=== PATIENT | male | born 1975 | race American Indian/Alaskan Native ===

== ENCOUNTER 2017-07-22 19:00 | Emergency (ER) | payer MEDICAID ==
[2017-07-22 19:08] VITALS: PULSE 76; RESP 18; TEMP 97.9; O2SAT 98
[2017-07-22 19:10] VITALS: BP 124/87
[2017-07-22] MEDS ORDERED: Sodium Chloride 0.9% 1,000 ML IV STA (19:26)
[2017-07-22 19:44] LABS: BASO % 0.3 % (0.0-2.0); EOS % 0.6 % (0.0-4.0); LYMPH # 1.2 K/uL (1.0-4.3); LYMPH % 18.7 % (20.0-40.0); MEAN CELL VOLUME 95.9 fl (80.0-94.0); MEAN CORPUSCULAR HEMOGLOBIN 32.6 pg (27.0-31.0); MEAN PLATELET VOLUME 9.9 fl (7.2-11.7); MONO # 0.7 K/uL (0.0-0.8); MONO % 11.1 % (0.0-10.0); NEUT # 4.3 K/uL (1.8-7.0); NEUT % 69.3 % (50.0-75.0); NRBC % 0.1 % (0.0-0.0); RBC 4.9 Mil/uL (4.40-5.90); RED CELL DISTRIBUTION WIDTH 13.9 % (11.5-14.5); WHITE BLOOD COUNT 6.2 K/uL (4.8-10.8)
[2017-07-22 19:52] LABS: CALCIUM 9.2 mg/dL (8.4-10.2); GFR AFRICAN-AMERICAN > 60; GFR NON-AFRICAN AMERICAN 56
--- NOTE | 2017-07-22 19:54 | ED PDOC ---
HPI: Abdomen Time Seen by Provider: 07/22/17 19:00 Chief Complaint (Nursing): GI Problem Chief Complaint (Provider): Abdominal discomfort History Per: Patient History/Exam Limitations: no limitations Onset/Duration Of Symptoms: Days Outside of [place] travel?: No Current Symptoms Are (Timing): Still Present Location Of Pain/Discomfort: Diffuse Quality Of Discomfort: Cramping, Gas Associated Symptoms: Nausea, Diarrhea. denies: Vomiting Additional Complaint(s): 41yo male with HIV (good follow up, undetectable viral load), hypertension ( compliant with Amplodipine), presents to ER with complaints of abdominal discomfort with associated nausea and diarrhea since this morning. Patient also reports a tactile fever and night sweats. He states his roommate has similar symptoms as well which started after they ate the same food yesterday. The patient has been unable to tolerate PO intake today. He offers no other medical complaints. PMD: Dr. Yanez in [place] Past Medical History Reviewed: Historical Data, Nursing Documentation, Vital Signs Vital Signs: Last Vital Signs Temp 97.9 F 07/22/17 19:04 Pulse 76 07/22/17 19:04 Resp 18 07/22/17 19:04 BP 124/87 07/22/17 19:04 Pulse Ox 98 07/22/17 22:00 - Medical History PMH: HIV, HTN - Surgical History Surgical History: No Surg Hx - Family History Family History: States: No Known Family Hx - Home Medications Home Medications: Ambulatory Orders Medication Instructions Recorded Ondansetron [Zofran] 4 mg PO Q6H PRN #5 tab 07/22/17 - Allergies Allergies/Adverse Reactions: Allergies Allergy/AdvReac Type Severity Reaction Status Date / Time No Known Allergies Allergy Verified 07/22/17 19:04 Review of Systems ROS Statement: Except As Marked, All Systems Reviewed And Found Negative Constitutional: Positive for: Fever, Sweats. Negative for: Weakness Gastrointestinal: Positive for: Vomiting, Abdominal Pain, Diarrhea Physical Exam - Reviewed Nursing Documentation Reviewed: Yes Vital Signs Reviewed: Yes - Physical Exam Appears: Positive for: Non-toxic, No Acute Distress Head Exam: Positive for: ATRAUMATIC, NORMAL INSPECTION, NORMOCEPHALIC Skin: Positive for: Normal Color, Warm Eye Exam: Positive for: Normal appearance, PERRL ENT: Positive for: Normal ENT Inspection. Negative for: Pharyngeal Erythema Neck: Positive for: Supple Cardiovascular/Chest: Positive for: Regular Rate, Rhythm Respiratory: Positive for: Normal Breath Sounds. Negative for: Respiratory Distress Gastrointestinal/Abdominal: Positive for: Normal Exam, Soft. Negative for: Tenderness Neurologic/Psych: Positive for: Alert, Oriented. Negative for: Motor/Sensory Deficits - Laboratory Results Result Diagrams: 07/22/17 19:40 07/22/17 19:40 - ECG O2 Sat by Pulse Oximetry: 98 (RA) Pulse Ox Interpretation: Normal Medical Decision Making Medical Decision Making: Impression: Viral illness Plan: -- IV Fluids -- Pepcid 20mg IV -- Zofran 4mg ODT -- CMP Time: 2100 Patient reports feeling much better but states his diarrhea still persists. Imodium 4mg PO given. Time: 21:55 --Patient feels better and is tolerating PO. He will be discharged with Zofran. Follow up with PMD in 1-2 days. Return to the ED if symptoms persist or worsen. Scribe Attestation: Documented by Kandice Tsang acting as a scribe for Alta Puente MD Provider Attestation: All medical record entries made by the Scribe were at my direction and personally dictated by me. I have reviewed the chart and agree that the record accurately reflects my personal performance of the history, physical exam, medical decision making, and the department course for this patient. I have also personally directed, reviewed, and agree with the discharge instructions and disposition. Disposition - Clinical Impression Clinical Impression: Gastroenteritis - Patient ED Disposition Is Patient to be Admitted: No Counseled Patient/Family Regarding: Studies Performed, Diagnosis, Need For Followup - Disposition Referrals: [facility] [Outside] [facility] [Outside] Disposition: Routine/Home Disposition Time: 21:57 Condition: IMPROVED Additional Instructions: follow up with your primary doctor in 1-2 days return to the ED with any worsening or concerning symptoms Prescriptions: Ondansetron [Zofran] 4 mg PO Q6H PRN #5 tab PRN Reason: Nausea/Vomiting Instructions: Viral Gastroenteritis Forms: [employer] (Burundian)
[2017-07-22 20:02] LABS: ALB/GLOB RATIO 1.1 (1.0-2.1); ALBUMIN 4.9 g/dL (3.5-5.0); ALT/SGPT 31 U/L (21-72); AST/SGOT 46 U/L (17-59); BLOOD UREA NITROGEN 24 mg/dl (9-20)
== END 2017-07-22 22:04 | disposition home or self-care (01) ==
LOC: H.ER 19:00
DX: K52.9 Noninfective gastroenteritis and colitis, unspecified (principal); I10 Essential (primary) hypertension; B20 Human immunodeficiency virus [HIV] disease
CPT/HCPCS: 80053; 85025; 96374; 99283; J7040

== ENCOUNTER 2017-10-09 12:23 | Emergency (ER) | payer MEDICAID, OTHER ==
[2017-10-09 12:29] VITALS: BMI 27.5
[2017-10-09 12:31] VITALS: BP 145/91; PULSE 72; RESP 20; TEMP 98.3; O2SAT 99
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
--- NOTE | 2017-10-09 14:42 | RAD ---
Date of service: 10/09/2017 PROCEDURE: Cervical Spine Radiographs. HISTORY: Pain. COMPARISON: None. FINDINGS: BONES: Straightened curvature. No fracture or spondylolisthesis. No destructive bony lesion identified. Vertebral body heights are normal. Mild facet degenerative arthropathy is appreciate the mid to inferior cervical levels. DISC SPACES: Variable multilevel cervical spondylosis appreciated concentrated at C4-5 and C5-6 anteriorly greater than posteriorly. Limited disc height loss seen at C5-6. SOFT TISSUES: Normal. No prevertebral soft tissue swelling. OTHER FINDINGS: None. IMPRESSION: Multilevel degenerative disc disease concentrated the mid to inferior cervical spine as discussed above. No fracture or spondylolisthesis identified. Straightening of the cervical curvature is apparent.
== END 2017-10-09 13:55 | disposition home or self-care (01) ==
LOC: H.ER 12:23
DX: S16.1XXA Strain of muscle, fascia and tendon at neck level, initial encounter (principal); V43.52XA Car driver injured in collision with other type car in traffic accident, initial encounter; Y92.410 Unspecified street and highway as the place of occurrence of the external cause; I10 Essential (primary) hypertension

== ENCOUNTER 2018-02-01 14:37 | Emergency (ER) | payer MEDICAID, OTHER ==
[2018-02-01 14:37] VITALS: BMI 27.5
[2018-02-01 15:07] VITALS: RESP 18; TEMP 98.3; O2SAT 97
--- NOTE | 2018-02-01 16:20 | ED PDOC ---
HPI: General Adult Time Seen by Provider: 02/01/18 15:29 Chief Complaint (Nursing): Flu-like Symptoms Chief Complaint (Provider): Flu-like Symptoms History Per: Patient History/Exam Limitations: no limitations Onset/Duration Of Symptoms: Days Current Symptoms Are (Timing): Still Present Additional Complaint(s): 42 year old male, PMH of HIV, presents to the ER for an evaluation of flu-like symptoms onset for 2 days complaining of runny nose, sinus pain and sore throat. . He took medication for throat pain without any relief. Denies any fever, vomiting, nausea or diarrhea. PMD: Renata Ramirez Past Medical History Reviewed: Historical Data, Nursing Documentation, Vital Signs Vital Signs: Last Vital Signs Temp 98.3 F 02/01/18 15:05 Pulse 76 02/01/18 15:05 Resp 18 02/01/18 15:05 BP 152/93 H 02/01/18 15:05 Pulse Ox 97 02/01/18 15:05 - Medical History PMH: HIV, HTN - Family History Family History: States: Unknown Family Hx - Social History Current smoker - smoking cessation education provided: No Drugs: Cannabis - Home Medications Home Medications: Ambulatory Orders Medication Instructions Recorded Ondansetron [Zofran] 4 mg PO Q6H PRN #5 tab 07/22/17 Cyclobenzaprine [Cyclobenzaprine 10 mg PO TID #20 tab 10/09/17 HCl] Ibuprofen [Motrin] 600 mg PO Q6 #20 tab 10/09/17 Azithromycin [Zithromax] 500 mg PO DAILY #6 tab 02/01/18 Methylprednisolone [Medrol Dose 4 mg PO DAILY #21 mg 02/01/18 Pack (21 tabs)] Promethazine HCl/Codeine 5 ml PO HS #80 ml 02/01/18 [Prometh-Codein 6.25-10 mg/5 ml] - Allergies Allergies/Adverse Reactions: Allergies Allergy/AdvReac Type Severity Reaction Status Date / Time No Known Allergies Allergy Verified 10/09/17 12:26 Review of Systems ROS Statement: Except As Marked, All Systems Reviewed And Found Negative Constitutional: Positive for: Other (body ache). Negative for: Fever, Chills ENT: Positive for: Nose Discharge, Throat Pain Gastrointestinal: Negative for: Nausea, Vomiting, Abdominal Pain, Diarrhea Physical Exam - Reviewed Nursing Documentation Reviewed: Yes Vital Signs Reviewed: Yes - Physical Exam Appears: Positive for: Well, Non-toxic, No Acute Distress Head Exam: Positive for: ATRAUMATIC, NORMAL INSPECTION, NORMOCEPHALIC Skin: Positive for: Normal Color, Warm, Dry Eye Exam: Positive for: Normal appearance, EOMI, PERRL ENT: Positive for: Normal ENT Inspection Cardiovascular/Chest: Positive for: Regular Rate, Rhythm. Negative for: Murmur Respiratory: Positive for: Normal Breath Sounds. Negative for: Decreased Breath Sounds, Wheezing, Respiratory Distress Neurologic/Psych: Positive for: Alert, Oriented (x3). Negative for: Motor/Sensory Deficits - ECG O2 Sat by Pulse Oximetry: 97 (RA) Pulse Ox Interpretation: Normal Medical Decision Making Medical Decision Making: Time: 161 Initial Plan: CXR (PA & LAT) [RAD] Reevaluation CXR: NAD, as read by LUCIE Supportive care measures discussed Pt scheduled to follow up with PMD next week Scribe Attestation: Documented by Lenny Benitez, acting as a scribe for Taryn Otero PA-C Provider Scribe Attestation: All medical record entries made by the Scribe were at my direction and personally dictated by me. I have reviewed the chart and agree that the record accurately reflects my personal performance of the history, physical exam, medical decision making, and the department course for this patient. I have also personally directed, reviewed, and agree with the discharge instructions and disposition. Disposition - Clinical Impression Clinical Impression: Upper respiratory infection - Patient ED Disposition Is Patient to be Admitted: No - Disposition Disposition: Routine/Home Disposition Time: 17:05 Condition: STABLE Prescriptions: Azithromycin [Zithromax] 500 mg PO DAILY #6 tab Methylprednisolone [Medrol Dose Pack (21 tabs)] 4 mg PO DAILY #21 mg Promethazine HCl/Codeine [Prometh-Codein 6.25-10 mg/5 ml] 5 ml PO HS #80 ml Instructions: Viral Upper Respiratory Infection, Adult (DC) Forms: [employer] (Lithuanian)
[2018-02-01 17:01] VITALS: BP 145/90; PULSE 71
--- NOTE | 2018-02-01 17:12 | RAD ---
Date of service: 02/01/2018 HISTORY: cough and fever COMPARISON: No prior. TECHNIQUE: Chest PA and lateral FINDINGS: LUNGS: No active pulmonary disease. PLEURA: No significant pleural effusion identified. No pneumothorax apparent. CARDIOVASCULAR: No aortic atherosclerotic calcification present. Normal cardiac size. No pulmonary vascular congestion. OSSEOUS STRUCTURES: No significant abnormalities. VISUALIZED UPPER ABDOMEN: Normal. OTHER FINDINGS: None. IMPRESSION: No active disease.
== END 2018-02-01 17:00 | disposition home or self-care (01) ==
LOC: H.ER 14:37
DX: J34.89 Other specified disorders of nose and nasal sinuses (principal); J06.9 Acute upper respiratory infection, unspecified

== ENCOUNTER 2018-07-08 13:05 | Emergency (ER) | payer MEDICAID, OTHER ==
[2018-07-08 13:05] VITALS: BMI 27.5
[2018-07-08 13:28] VITALS: BP 149/87; PULSE 58; RESP 18; TEMP 98.2; O2SAT 100
[2018-07-08] MEDS ORDERED: cefTRIAXone (Rocephin) 250 mg Inj IM STA (14:31)
[2018-07-08] MEDS ORDERED: cefTRIAXone (Rocephin) 250 mg Inj ONE (14:43)
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
== END 2018-07-08 15:10 | disposition home or self-care (01) ==
LOC: H.ER 13:05
DX: I10 Essential (primary) hypertension (principal); Z79.899 Other long term (current) drug therapy; Z20.2 Contact with and (suspected) exposure to infections with a predominantly sexual mode of transmission
CPT/HCPCS: 87491; 87591; 96372; 99282; J0696